=== PATIENT | male | born 1985 | race African-American/Black ===

== ENCOUNTER 2016-11-07 02:55 | Emergency (ER) | payer BC ==
[~2016-11-07] VITALS: Ht 198.1 cm; Wt 107.0 kg
[2016-11-07 03:02] VITALS: TEMP 36.4; Ht 198.1 cm; Wt 107.0 kg
--- NOTE | 2016-11-07 06:49 | DIAGNOSTIC IMAGING REPORT ---
BILATERAL LOWER EXTREMITY VENOUS DOPPLER HISTORY: Acute right leg pain with history of deep venous thrombosis. History of chronic deep venous thrombosis. COMPARISON STUDY: None. FINDINGS: Areas of linear increased echogenicity are seen within the femoral and popliteal veins which are patent with normal compressibility. There is diminished color flow within the mid and distal portions of the peroneal vein which remains compressible. Otherwise, there is normal appearance of the deep veins of the right lower extremity with compressibility, flow and augmentation. IMPRESSION: 1. No occlusive deep venous thrombosis of the right lower extremity identified. 2. Areas of linear increased echogenicity within the femoral and popliteal veins are noted in addition to diminished flow within the peroneal vein. These findings suggest fibrin stranding from chronic deep venous thrombosis. Electronically signed by: Harish Wells M.D. 11/07/2016 6:47 AM Dictated Date/Time: 11/07/2016 6:38 AM
[2016-11-07] MEDS ORDERED: OXYCODONE IR HOME PACK PO ONE (07:00)
[2016-11-07] MEDS ORDERED: OXYC1TAB3 PO (07:02)
[2016-11-07 07:22] VITALS: BP 125/70; PULSE 78; O2SAT 95
--- NOTE | 2016-11-07 23:29 | EMERGENCY ROOM VISIT NOTE ---
History First contact with patient: 03:05 Chief Complaint: LEG PAIN,LEG INJURY Stated Complaint: LEG INJ History of Present Illness The patient is a 31 year old male who presents to the Emergency Room with complaints of pain of his right lower leg that began about one hour ago. 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 The patient states that he was on stage when he began having significant pain behind his right knee. The patient has had similar symptoms like this in the past, and does report a history of DVT. He previously underwent Lovenox and Coumadin, but strongly prefers to avoid these in the future. The patient does have worsening discomfort with certain range of motion of the knee and leg. He does travel extensively by airplane for his profession. He rates his pain an 8/10 that does not radiate. He does not have chest pain or shortness of breath. Review of Systems More than 10 systems were reviewed and otherwise negative with the exception of history of present illness. Past Medical/Surgical History History of RLE DVE x 1 episode Family History No pertinent family history Social History Smoking Status: Current Every Day Smoker Occupation Status: employed Current/Historical Medications Scheduled Oxycodone Immediate Rel Tab (Roxicodone Ir), 1-2 TAB PO Q6 Physical Exam Vital Signs Date Time Temp Pulse Resp B/P (MAP) Pulse Ox O2 Delivery O2 Flow Rate FiO2 11/07/16 07:22 78 15 125/70 95 11/07/16 06:34 78 15 125/70 95 Room Air 11/07/16 05:00 85 15 148/77 95 Room Air 11/07/16 03:02 36.4 82 30 125/65 93 Room Air Physical Exam VITALS: Vitals are noted on the nurse's note and reviewed by myself. Vital signs stable. GENERAL: Well-developed, well-nourished, Black male, who is in no acute distress and resting comfortably. Patient is cooperative with the examination. HEART: Regular rate and rhythm without murmurs gallops or rubs. LUNGS: Clear to auscultation bilaterally without wheezes, rales or rhonchi. No retractions or accessory muscle use. ABDOMEN: Positive normal bowel sounds x 4. Soft, nontender, without masses or organomegaly. No guarding or rebound tenderness. MUSCULOSKELETAL: No muscle atrophy, erythema, or edema noted. Tenderness is appreciated from the popliteal space of the right lower extremity laterally to right mid calf. There is no distinct palpable cord. The patient does have worsening tenderness with dorsiflexion and plantarflexion of the foot in this area. He is able to ambulate, however this does exacerbate his symptoms. NEURO: Patient was alert and oriented to person place and time. CN II through XII grossly intact. Deep tendon reflexes 2+ throughout. Medical Decision & Procedures ER Provider Diagnostic Interpretation: BILATERAL LOWER EXTREMITY VENOUS DOPPLER HISTORY: Acute right leg pain with history of deep venous thrombosis. History of chronic deep venous thrombosis. COMPARISON STUDY: None. FINDINGS: Areas of linear increased echogenicity are seen within the femoral and popliteal veins which are patent with normal compressibility. There is diminished color flow within the mid and distal portions of the peroneal vein which remains compressible. Otherwise, there is normal appearance of the deep veins of the right lower extremity with compressibility, flow and augmentation. IMPRESSION: 1. No occlusive deep venous thrombosis of the right lower extremity identified. 2. Areas of linear increased echogenicity within the femoral and popliteal veins are noted in addition to diminished flow within the peroneal vein. These findings suggest fibrin stranding from chronic deep venous thrombosis. Medications Administered Medications (Trade) Dose Ordered Sig/Pee Route Start Time Stop Time Status Last Admin Dose Admin Oxycodone HCl (Roxicodone Immediate Rel 5MG Home Pack) 1 homepack UD ONCE PO 11/07/16 07:00 11/07/16 07:01 DC 11/07/16 07:08 1 HOMEPACK ED Course Physical exam and history were performed. Nursing notes, EMR, and Medication List were personally reviewed. Patient appears to have right lower leg pain for the past one hour. He does have a history of DVT in the past and is concerned about the same. The patient was offered pain medication initially, but he deferred this. Ultrasound was performed and does not show obvious occlusive acute DVT. There are findings of possible scarring from chronic DVT. I discussed options of care with the patient at length, including initiation of Xarelto, as he does have some findings in this area, but no obvious acute DVT. The patient appears well educated on this from previous experience, and strongly prefers to avoid starting medication unless absolutely necessary. The patient does have plans to return home in the next few days, and does feel comfortable with outpatient follow-up. I will provide him a short course of pain medication as he is tender in the area. He will be given crutches. We did make copies of his ultrasound discs so that he may take this with him for future follow-up. The patient was certainly invited back to the ER with any new , worsening, or concerning symptoms. He rated his discomfort a 0/10 at the time of departure. This chart was completed utilizing [employer] Voice Recognition Software. Grammatical errors, random word insertions, pronoun errors, and incomplete sentences are an occasional consequence of this system due to software limitations, ambient noise, and hardware issues. Any formal questions or concerns about the content, text, or information contained within the body of this dictation should be directly addressed to the provider for clarification. . Medical Decision Differential diagnosis: Etiologies such as DVT, musculoskeletal, infection, joint effusion, trauma, lymphedema, idiopathic, CHF, as well as others were entertained.. Impression Primary Impression: Right leg pain Departure Information Dispostion Home / Self-Care Condition GOOD Prescriptions Oxycodone Immediate Rel Tab (ROXICODONE IR) 5 Mg Tab 1-2 TAB PO Q6 for Pain, #20 TAB Prov: Edward Haley PA-C 11/07/16 Forms HOME CARE DOCUMENTATION FORM, IMPORTANT VISIT INFORMATION Patient Instructions [facility] Additional Instructions You were seen and evaluated today on an emergency basis only. This is not a substitute for, or an effort to provide, complete comprehensive medical care. It is not possible to recognize and treat all injuries or illnesses in a single emergency department visit. For this reason it is recommended that you followup with your primary care physician as soon as possible for recheck of your condition. You may need a repeat ultrasound in the future. Please take your ultrasound disc with you to future appointments. For baseline pain relief you may alternate ibuprofen and acetaminophen every 4 hours for pain control. Take 600 mg ibuprofen (Advil) and then 4 hours later take 1000 mg acetaminophen (Tylenol). Do not take more than 3000 mg acetaminophen in a single day. Oxycodone (OxyIR) 5mg: Take ONE pill every SIX hours for breakthrough pain. Avoid alcohol, operating machinery or dangerous equipment, working on ladders or roofs, DRIVING, or situations where being under the influence may be dangerous. It is recommended to use an [id number] stool softener such as Colace, 100mg twice daily while taking this medication to avoid constipation. You may use your crutches to help with walking. If symptoms persist you may also wish to follow with orthopedics. You are welcome to return to the emergency department anytime with new, worsening, or concerning symptoms.
== END 2016-11-07 07:23 | disposition home or self-care (01) ==
LOC: C.EDB 02:57 → C.EDA 07:23
DX: M79.661 Pain in right lower leg (principal); F17.200 Nicotine dependence, unspecified, uncomplicated; Z86.718 Personal history of other venous thrombosis and embolism; Z79.01 Long term (current) use of anticoagulants